=== PATIENT | female | born 1950 | race Two or more races ===

== ENCOUNTER 2020-08-05 11:28 | Inpatient (IN) | payer OTHER ==
[~2020-08-05] VITALS: Ht 165.1 cm; Wt 66.5 kg
[2020-08-05] MEDS ORDERED: SODIUM CHLORIDE 0.9% 500 ML IV ONE (11:45)
[2020-08-05 12:01] LABS: Basophils # (auto) 0 10 ^3/uL (0-0.2); Basophils % (auto) 0.3 % (0.0-2.0); Eosinophils # (auto) 0 10 ^3/uL (0-0.8); Eosinophils % (auto) 0.1 % (0.0-7.0); Hematocrit 36.3 % (36.0-46.0); Hemoglobin 12.2 g/dL (12.2-16.2); Lymphocytes % (auto) 13.5 % (10.0-50.0); Mean Corpuscular Hemoglobin 30.2 pg (28.0-32.0); Mean Corpuscular Hgb Conc. 33.7 g/dL (32.0-36.0); Mean Corpuscular Volume 89.8 fL (80.0-100.0); Monocytes # (auto) 0.5 10 ^3/uL (0-1.3); Monocytes % (auto) 6.6 % (0.0-12.0); Neutrophils # (auto) 5.8 10 ^3/uL (1.6-8.6); Neutrophils % (auto) 79.5 % (37.0-80.0); Platelet Count (auto) 266 10^3/uL (140-450); Red Blood Cells 4.04 10^6/uL (4.0-5.20); White Blood Cell 7.3 10^3/uL (4.4-10.8)
[2020-08-05 12:25] LABS: Albumin 3.3 g/dL (3.4-5.0); Anion Gap 8 (5-15); Blood Urea Nitrogen 18 mg/dL (7-18); Calcium 8.5 mg/dL (8.5-10.1); Carbon Dioxide 20 mmol/L (21-32); Chloride 106 mmol/L (98-107); Glucose 154 mg/dL (74-106); Potassium 3.7 mmol/L (3.5-5.1); Sodium 134 mmol/L (136-145)
[2020-08-05 12:31] LABS: Alanine Aminotransferase 30 U/L (13-56); Alkaline Phosphatase 43 U/L (45-117); Aspartate Aminotransferase 32 U/L (15-37); BUN/Creatinine Ratio 18.4; Bilirubin, Total 0.4 mg/dL (0.2-1.0); GFR African American 72 mL/min; GFR Non-African American 60 mL/min; Total Protein 7.2 g/dL (6.4-8.2)
[2020-08-05] MEDS ORDERED: IOHEXOL 350 MG/ML 100ML IJ ONE (13:13)
[2020-08-05] MEDS ORDERED: AZITHROMYCIN 500MG/ 250ML 250 ML IV ONE (14:15)
[2020-08-05] MEDS ORDERED: methylPREDNISolone SOD SUCC 125 MG/2 ML VL IV ONE (14:15)
[2020-08-05] MEDS ORDERED: ASCORBIC ACID 500 MG TAB PO ONE (14:15)
[2020-08-05] MEDS ORDERED: ZINC SULFATE 220mg CAP or TAB PO ONE (14:15)
[2020-08-05 14:44] LABS: Urine Bacteria NONE SEEN /hpf (None Seen); Urine Blood Negative /uL (Negative); Urine Specific Gravity 1.006 (1.001-1.035); Urine WBC <1 /hpf (0 - 5)
[2020-08-05 14:56] LABS: CRP High Sensitivity 6.46 mg/dL (< 0.3)
[2020-08-05] MEDS ORDERED: SODIUM CHLORIDE 0.9% 1,000 ML IV SCH (15:30)
[2020-08-05] MEDS ORDERED: ACETAMINOPHEN 500 MG TAB PO PRN (15:30)
[2020-08-05] MEDS ORDERED: ONDANSETRON HCL 4 MG/2 ML VIAL IV ONE (16:15)
[2020-08-05] MEDS ORDERED: NITROGLYCERIN 0.4 MG SL TAB SL PRN (17:15)
[2020-08-05] MEDS ORDERED: MORPHINE SULF INJ 2 MG/ML SYRINGE 1ML IV PRN (17:15)
[2020-08-05] MEDS ORDERED: METF-869 PO (19:53)
--- NOTE | 2020-08-05 20:35 | NUR ---
Telemetry admit from ER [facility] BLANK admitted to Telemetry unit. Patient oriented to Belkis Thacker, primary RN, unit, room, bed, and unit policies regarding patient care and visiting hours. Patient now on continuous telemetry monitoring, tele box # 13 and telemetry reading on arrival to unit is sinus rhythm. Patient weighed by bed scale and encouraged to call if they need something. All questions and concerns addressed, patient verbalized understanding.
[2020-08-05 21:00] VITALS: BP 142/68
[2020-08-05] MEDS ORDERED: DEXTROSE (50%) 50ML SYRG IV PRN (21:00)
[2020-08-05 22:00] VITALS: BP 142/68
[2020-08-05] MEDS ORDERED: DOXYCYCLINE 100MG/250ML 250 ML IV SCH (22:00)
[2020-08-05] MEDS: ACCU-CHEK COMFORT CURVE STRIP VI SCH (22:24)
[2020-08-05] MEDS: FAMOTIDINE 20 MG TAB PO SCH (22:24)
[2020-08-05] MEDS: ALBUTEROL SULF HFA 90MCG INH 200DOSE IN SCH (22:25)
[2020-08-05] MEDS: BUDESONIDE (INHALATION) 180 MCG IH IN SCH (22:25)
[2020-08-05] MEDS: InsuLIN REG 1unit/0.01ml Soln (100units/ml) SC SCH (22:26)
[2020-08-06] VITALS (7 sets, daily range): BP systolic 121–142; BP diastolic 55–81
[2020-08-06] MEDS ORDERED: SIMV10TA84 PO (01:08)
[2020-08-06] MEDS ORDERED: GABA100C9 PO (01:08)
[2020-08-06 06:17] LABS: Basophils # (auto) 0 10 ^3/uL (0-0.2); Basophils % (auto) 0.1 % (0.0-2.0); Eosinophils # (auto) 0 10 ^3/uL (0-0.8); Hematocrit 37.6 % (36.0-46.0); Hemoglobin 12.4 g/dL (12.2-16.2); Lymphocytes # (auto) 0.7 10 ^3/uL (0.4-5.4); Lymphocytes % (auto) 18.5 % (10.0-50.0); Mean Corpuscular Hemoglobin 30.1 pg (28.0-32.0); Mean Corpuscular Hgb Conc. 33.1 g/dL (32.0-36.0); Mean Corpuscular Volume 91.1 fL (80.0-100.0); Monocytes # (auto) 0.2 10 ^3/uL (0-1.3); Monocytes % (auto) 6.2 % (0.0-12.0); Neutrophils # (auto) 2.8 10 ^3/uL (1.6-8.6); Neutrophils % (auto) 75.2 % (37.0-80.0); Platelet Count (auto) 293 10^3/uL (140-450); Red Blood Cells 4.12 10^6/uL (4.0-5.20); Red Cell Distribution Width 13.9 % (11.8-14.3); White Blood Cell 3.7 10^3/uL (4.4-10.8)
[2020-08-06] MEDS: ACCU-CHEK COMFORT CURVE STRIP VI SCH ×4 (06:25→21:51)
[2020-08-06] MEDS: InsuLIN REG 1unit/0.01ml Soln (100units/ml) SC SCH ×5 (06:28→21:53)
[2020-08-06 06:45] LABS: Albumin 3.2 g/dL (3.4-5.0); BUN/Creatinine Ratio 18.7; Bilirubin, Total 0.5 mg/dL (0.2-1.0); Calcium 8.8 mg/dL (8.5-10.1); Total Protein 7.5 g/dL (6.4-8.2)
--- NOTE | 2020-08-06 07:30 | NUR ---
Opening Shift Note Assumed patient care from NOC RN. Patient currently sitting up in bed, no signs of distress at this time. Will continue to monitor q1hra and PRN
[2020-08-06] MEDS: ALBUTEROL SULF HFA 90MCG INH 200DOSE IN SCH ×4 (07:55→22:59)
[2020-08-06] MEDS: BUDESONIDE (INHALATION) 180 MCG IH IN SCH ×3 (07:55→22:59)
[2020-08-06] MEDS: cefTRIAXone 1GM/50ML D5W 50 ML IV SCH (09:33)
[2020-08-06] MEDS: methylPREDNISolone SOD SUCC 40 MG/ML VL IV SCH (09:46)
[2020-08-06] MEDS: ZINC SULFATE 220mg CAP or TAB PO SCH (09:47)
[2020-08-06] MEDS: ASCORBIC ACID 500 MG TAB PO SCH ×2 (09:48→21:52)
[2020-08-06] MEDS: FAMOTIDINE 20 MG TAB PO SCH ×2 (09:48→21:52)
[2020-08-06] MEDS: ENOXAPARIN SOD 40 MG/0.4 ML SYRINGE SC SCH (09:48)
[2020-08-06] MEDS: CHOLECALCIFEROL (VITD3) 2,000 UNIT CAP PO SCH (09:49)
--- NOTE | 2020-08-06 09:55 | NUR ---
ss consult Per consult request advanced directive. Patient is in covid unit. Adali BROTHERS has provided patient with advanced directive. Addendum: 08/06/20 at 0956 by Katty Mortensen Amended: Links added.
[2020-08-06] MEDS ORDERED: AZITHROMYCIN 500MG/ 250ML 250 ML IV SCH (10:00)
[2020-08-06] MEDS ORDERED: methylPREDNISolone SOD SUCC 40 MG/ML VL IV SCH (10:00)
--- NOTE | 2020-08-06 11:25 | NUR ---
Left message with Dr. Carver regarding order clarifications.
--- NOTE | 2020-08-06 11:31 | NUR ---
Called Spoke with Dr. Carver regarding orders. Per , discontinue Zithromax and start patient on Doxcycline, see EMAR. Addendum: 08/06/20 at 1410 by RYLEY ANGELO RN RN Cardiac diet.
[2020-08-06] MEDS ORDERED: DOXYCYCLINE 100MG/250ML 250 ML IV ONE (11:45)
--- NOTE | 2020-08-06 14:18 | NUR ---
Closing Note Endorsed care to ZEV Taylor.
--- NOTE | 2020-08-06 20:10 | NUR ---
OPENING SHIFT NOTE: Assumed care of patient. Patient is awake, alert, and oriented x 4. No s/s of respiratory distress noted or reported. Patient denies any pain at this time. Bed in lowest locked position, two side rails raised, and call knowles within reach. Instructed on POC and encouraged to call for assistance as needed. All questions and concerns addressed. Patient verbalized understanding. Will continue to monitor Q1H/ PRN.
[2020-08-06] MEDS: DOXYCYCLINE 100MG/250ML 250 ML IV SCH (23:57)
[2020-08-07 05:00] VITALS: BP 139/80
[2020-08-07] MEDS: ACCU-CHEK COMFORT CURVE STRIP VI SCH ×3 (06:46→17:00)
[2020-08-07] MEDS: InsuLIN REG 1unit/0.01ml Soln (100units/ml) SC SCH ×3 (06:46→16:59)
[2020-08-07] MEDS: ALBUTEROL SULF HFA 90MCG INH 200DOSE IN SCH ×2 (07:04→14:51)
[2020-08-07] MEDS: BUDESONIDE (INHALATION) 180 MCG IH IN SCH (07:05)
[2020-08-07 07:50] LABS: Basophils # (auto) 0 10 ^3/uL (0-0.2); Basophils % (auto) 0.4 % (0.0-2.0); Eosinophils # (auto) 0 10 ^3/uL (0-0.8); Hematocrit 36.2 % (36.0-46.0); Hemoglobin 12.4 g/dL (12.2-16.2); Lymphocytes # (auto) 1.4 10 ^3/uL (0.4-5.4); Lymphocytes % (auto) 20.2 % (10.0-50.0); Mean Corpuscular Hemoglobin 30.6 pg (28.0-32.0); Mean Corpuscular Hgb Conc. 34.2 g/dL (32.0-36.0); Mean Corpuscular Volume 89.5 fL (80.0-100.0); Monocytes # (auto) 0.5 10 ^3/uL (0-1.3); Monocytes % (auto) 7.2 % (0.0-12.0); Neutrophils # (auto) 4.9 10 ^3/uL (1.6-8.6); Neutrophils % (auto) 72.2 % (37.0-80.0); Platelet Count (auto) 332 10^3/uL (140-450); Red Blood Cells 4.04 10^6/uL (4.0-5.20); Red Cell Distribution Width 13.7 % (11.8-14.3); White Blood Cell 6.8 10^3/uL (4.4-10.8)
[2020-08-07 08:00] VITALS: BP 117/52
[2020-08-07 08:03] LABS: BUN/Creatinine Ratio 19.2; Calcium 8.6 mg/dL (8.5-10.1); Potassium 3.4 mmol/L (3.5-5.1)
--- NOTE | 2020-08-07 08:30 | NUR ---
Patient reporting dizziness and nausea. Patient given emesis bag and placed in bed, call light bedside. Will continue to monitor. Paged Dr Anny Rajput for orders Addendum: 08/07/20 at 0940 by DON VICKERS RN RN Patient VS: 115/78, 78, 18, 94%, 98.8
--- NOTE | 2020-08-07 08:35 | NUR ---
Informed Dr Anny Rajput of patients nausea and vomiting. Orders received and carried out.
[2020-08-07] MEDS ORDERED: ACETAMINOPHEN 500 MG TAB PO PRN (08:45)
[2020-08-07] MEDS ORDERED: ONDANSETRON HCL 4 MG/2 ML VIAL IV PRN (08:45)
--- NOTE | 2020-08-07 08:45 | NUR ---
Per Dr Rajput, paged Dr Ivey to obtain clearance for d/c.
[2020-08-07 09:00] VITALS: BP 117/52
--- NOTE | 2020-08-07 09:05 | NUR ---
IV removal IV infiltrated, IV DC'd with clean sterile technique, catheter fully intact. Pressure dressing applied to site. Patient tolerated well.
[2020-08-07] MEDS: cefTRIAXone 1GM/50ML D5W 50 ML IV SCH (09:13)
[2020-08-07] MEDS: ASCORBIC ACID 500 MG TAB PO SCH (09:14)
[2020-08-07] MEDS: ZINC SULFATE 220mg CAP or TAB PO SCH (09:14)
[2020-08-07] MEDS: FAMOTIDINE 20 MG TAB PO SCH (09:14)
[2020-08-07] MEDS: ENOXAPARIN SOD 40 MG/0.4 ML SYRINGE SC SCH (09:14)
[2020-08-07] MEDS: methylPREDNISolone SOD SUCC 40 MG/ML VL IV SCH (09:14)
[2020-08-07] MEDS: CHOLECALCIFEROL (VITD3) 2,000 UNIT CAP PO SCH (09:14)
--- NOTE | 2020-08-07 09:15 | NUR ---
IV insertion IV access obtained, via clean sterile technique by inserting 22 gauge catheter to right hand after 1 attempt. IV secured properly. No trauma to site. Patient tolerated well.
--- NOTE | 2020-08-07 09:30 | NUR ---
Dr Ivey bedside with patient discussing plan of care. Dr Ivey provided conditional clearance, if patient is without nausea or dizziness by 3 this afternoon, patient may d/c. If patient experiences continued nausea and dizziness, patient is NOT cleared for d/c.
[2020-08-07] MEDS: DOXYCYCLINE 100MG/250ML 250 ML IV SCH (12:00)
[2020-08-07 12:44] VITALS: BP 120/60
--- NOTE | 2020-08-07 13:12 | NUR ---
Paged Dr Rajput to inform of Dr Uche louie
--- NOTE | 2020-08-07 13:15 | NUR ---
Headache Patient reports headache pain of 2/10. Per patient, this pain level is tolerable, and no pain medication is requested at this time
[2020-08-07 17:00] VITALS: BP 116/55
--- NOTE | 2020-08-07 18:30 | NUR ---
Patient without nausea or dizziness since 914 today.
[2020-08-07] MEDS ORDERED: POTASSIUM CHL 20 Meq TABLET PO ONE (18:45)
[2020-08-07] MEDS ORDERED: DEXA6TAB6 PO (18:50)
[2020-08-07] MEDS ORDERED: ALBUAER3 IN (18:50)
[2020-08-07] MEDS ORDERED: CHOL1CAP47 PO (18:50)
[2020-08-07] MEDS ORDERED: ASCO500T11 PO (18:50)
[2020-08-07] MEDS ORDERED: DOXY-346 PO (18:50)
[2020-08-07] MEDS ORDERED: ZINC220C8 PO (18:50)
[2020-08-07 19:00] VITALS: BP 116/55
--- NOTE | 2020-08-07 20:13 | NUR ---
Discharge at 1950 Pt discharged home. Instructions given as ordered. Pt is stable, no dizziness, no nausea reported. Encourage to follow up with PCP as instructed. All questions and concerns addressed. Patient verbalized understanding. IV removed with catheter intact, pressure dressing applied. Telemetry unit returned to ICU. Patient taken to vehicle via wheelchair with all personal belongings. No distress noted at time of departure.
== END 2020-08-07 19:50 | DRG 177 ==
LOC: EDBD 11:28 → ER 11:28 → TELE 11:29 → TELE-EAST 20:35
PROVIDERS: ADMIT Hospitalist; ATTEND Hospitalist
DX: U07.1 COVID-19 (principal); J96.01 Acute respiratory failure with hypoxia; J12.89 Other viral pneumonia; E78.5 Hyperlipidemia, unspecified; I10 Essential (primary) hypertension; R19.7 Diarrhea, unspecified; I95.9 Hypotension, unspecified; E11.9 Type 2 diabetes mellitus without complications; E87.6 Hypokalemia; K21.9 Gastro-esophageal reflux disease without esophagitis; I70.0 Atherosclerosis of aorta; Z78.9 Other specified health status; Z79.4 Long term (current) use of insulin; Z82.49 Family history of ischemic heart disease and other diseases of the circulatory system; Z83.3 Family history of diabetes mellitus; Z90.49 Acquired absence of other specified parts of digestive tract; Z79.899 Other long term (current) drug therapy; R42 Dizziness and giddiness
CPT/HCPCS: 36415; 70450; 71045; 71275; 80048; 80053; 81001; 82728; 82962; 83605; 83615; 83735; 84484; 85025; 85379; 86141; 87040; 87426; 93005; 94640; 96361; 96365; 96375; G0378; J0696; J1815; J2405; J3490